=== PATIENT | male | born 1970 | race Caucasian/White ===

== ENCOUNTER → 2017-06-05 | Outpatient (CLI) | payer OTHER ==
[~2017-06-05] MED LIST: ASPIRIN EC81 M1 PO; ASPIRIN81 M2 PO; AUGMENTIN 875875 MG PO; BLOOD PRESSURE MED; EFFIENT10 MG PO; FISH OIL 1,001000 M1 PO; FISH OIL 1,001000 M2 PO; FLEXERIL PO; FOLGARD TABLET1 EAC1 PO; GABAPENTIN 100100 MG PO; HYDROCODON-ACE1 EAC7 PO; HYDROCODONE-AP1 EAC6 PO; IBUPROFEN 800800 M1 PO; IBUPROFEN 800800 MG PO; LEVAQUIN 750 M750 MG PO; LIVALO2 MG PO; METOPROLOL SUCC25 M1 PO; MOBIC7.5 MG PO; NIASPAN 500 MG500 M1 PO; NORCO 5-325 TA1 EACH PO; OMEPRAZOLE20 MG PO; PHENERGAN 25 MG25 MG PO; PROTONIX40 M1 PO; PROTONIX40 M2 PO; TESSALON PERLE100 MG PO; TOPROL XL50 MG PO; VENTOLIN HFA 1818 GM INH; VITAMIN D32000 UNIT PO; ZPAK PO; [UNRECOGNIZED DRUG - OTHER] PO
== END ==
LOC: M.RAD 11:19
DX: R07.81 Pleurodynia (principal)

== ENCOUNTER → 2017-06-14 | Outpatient (CLI) | payer OTHER | LOC: M.ULTRA 06-10 16:26 | DX: N40.0 Benign prostatic hyperplasia without lower urinary tract symptoms (principal); N28.1 Cyst of kidney, acquired; K76.0 Fatty (change of) liver, not elsewhere classified; Z90.49 Acquired absence of other specified parts of digestive tract ==

== ENCOUNTER 2017-07-06 21:23 | Emergency (ER) | payer OTHER ==
[~2017-07-06] VITALS: Ht 185.4 cm; Wt 108.9 kg
[~2017-07-06 21:23] MED LIST changes: -GABAPENTIN 100100 MG PO; -MOBIC7.5 MG PO; -TESSALON PERLE100 MG PO; -[UNRECOGNIZED DRUG - OTHER] PO
[2017-07-06] MEDS ORDERED: GABAPENTIN 100100 MG PO (21:30)
[2017-07-06] MEDS ORDERED: MOBIC7.5 MG PO (21:31)
[2017-07-06 21:56] LABS: URINE BILIRUBIN NEGATIVE (Negative); URINE BLOOD NEGATIVE (Negative); URINE CLARITY CLEAR; URINE COLOR YELLOW; URINE GLUCOSE-RANDOM NEGATIVE (Negative); URINE KETONES NEGATIVE (Negative); URINE LEUKOCYTES-REFLEX NEGATIVE (Negative); URINE NITRITE-REFLEX NEGATIVE (Negative); URINE PROTEIN NEGATIVE (Negative); URINE SPECIFIC GRAVITY 1.015 (1.005-1.030); URINE UROBILINOGEN 0.2 E.U./dl (0.2-1.0)
[2017-07-06 22:18] LABS: INFLUENZA A ANTIGEN None Detected (None Detect)
[2017-07-06] MEDS ORDERED: [UNRECOGNIZED DRUG - OTHER] PO (22:33)
[2017-07-06] MEDS ORDERED: TESSALON PERLE100 MG PO (22:33)
[2017-07-06] MEDS ORDERED: VENTOLIN HFA 1818 GM INH (22:33)
[2017-07-06 22:43] VITALS: BP 146/70
== END 2017-07-06 22:48 | disposition home or self-care (01) ==
LOC: M.ERS 21:23
PROVIDERS: Physician Assistant
DX: J10.1 Influenza due to other identified influenza virus with other respiratory manifestations (principal); J18.1 Lobar pneumonia, unspecified organism; N45.1 Epididymitis; I10 Essential (primary) hypertension; E78.5 Hyperlipidemia, unspecified; F32.9 Major depressive disorder, single episode, unspecified; I48.91 Unspecified atrial fibrillation; Z88.5 Allergy status to narcotic agent

== ENCOUNTER → 2017-08-05 | Outpatient (CLI) | payer OTHER ==
[~2017-08-05] MED LIST changes: +GABAPENTIN 100100 MG PO; +MOBIC7.5 MG PO; +TESSALON PERLE100 MG PO; +[UNRECOGNIZED DRUG - OTHER] PO
== END ==
LOC: M.ULTRA 09:18
DX: I86.1 Scrotal varices (principal); N43.3 Hydrocele, unspecified; N50.812 Left testicular pain

== ENCOUNTER → 2017-08-20 | Outpatient (CLI) | payer OTHER | LOC: M.CT 14:35 | DX: N28.1 Cyst of kidney, acquired (principal); K76.0 Fatty (change of) liver, not elsewhere classified; K57.30 Diverticulosis of large intestine without perforation or abscess without bleeding; I70.0 Atherosclerosis of aorta ==

== ENCOUNTER 2017-08-26 19:30 | Emergency (ER) | payer OTHER ==
[~2017-08-26] VITALS: Ht 185.4 cm; Wt 110.2 kg
[2017-08-26 23:08] VITALS: BP 147/96
== END 2017-08-26 23:10 | disposition home or self-care (01) ==
LOC: M.ERS 19:30
DX: M54.5 Low back pain (principal); M79.604 Pain in right leg; M79.605 Pain in left leg; F32.9 Major depressive disorder, single episode, unspecified; I10 Essential (primary) hypertension; E78.5 Hyperlipidemia, unspecified; Z95.5 Presence of coronary angioplasty implant and graft; Z88.6 Allergy status to analgesic agent

== ENCOUNTER 2018-07-10 20:13 | Emergency (ER) | payer OTHER ==
[~2018-07-10] VITALS: Ht 185.4 cm; Wt 113.4 kg
[2018-07-10 21:03] LABS: ABSOLUTE BASOPHILS 0.1 thou/uL (0.0-0.2); ABSOLUTE EOSINOPHILS 0.2 thou/uL (0.0-0.7); ABSOLUTE LYMPHOCYTES 2.9 thou/uL (0.8-5.3); ABSOLUTE MONOCYTES 0.7 thou/uL (0.0-1.2); ABSOLUTE NEUTROPHILS 4.5 thou/uL (1.6-8.1); EOSINOPHILS 2.8 %; HEMATOCRIT 46.3 % (42.0-52.0); HEMOGLOBIN 15.9 gm/dL (14.0-18.0); MCH 30.3 pg (26.0-34.0); MCHC 34.3 g/dL (28.0-37.0); MCV 88.3 fL (80.0-100.0); MONOCYTES 8.7 %; MPV 8.6 fl. (7.2-11.1); NUCLEATED RBCS 0 /100WBC; PLATELET COUNT* 214 thou/uL (150-400); POLYS 53.5 %; RBC 5.24 mil/uL (4.50-6.00); RDW-CV 13.8 % (10.5-14.5); WBC 8.5 thou/uL (4.0-11.0)
[2018-07-10 21:18] LABS: PROTIME 9.9 Seconds (9.20-11.50)
[2018-07-10 21:27] LABS: ALKALINE PHOSPHATASE 75 U/L (46-116); ANION GAP 7 mmol/L (7-16); BUN 11 mg/dL (7-18); CALCIUM 9.1 mg/dL (8.5-10.1); CHLORIDE 102 mmol/L (98-107); CO2 31 mmol/L (21-32); CREATININE 1.2 mg/dL (0.6-1.3); GLUCOSE 103 mg/dL (70-99); LIPASE 239 U/L (73-393); NT-PRO BRAIN NAT PEPTIDE 16 pg/mL (<300); POTASSIUM 3.9 mmol/L (3.5-5.1); SGOT 29 U/L (15-37); SGPT 66 U/L (30-65); SODIUM 140 mmol/L (136-145); TOTAL BILIRUBIN 0.5 mg/dL (<0.1-1.0); TOTAL PROTEIN 7.4 g/dL (6.4-8.2); TROPONIN-I LEVEL <0.06 ng/mL (<0.06)
[2018-07-10 22:44] VITALS: BP 145/96
--- NOTE | 2018-07-13 14:53 | EKG ---
[place] [address] ELECTROCARDIOGRAM REPORT Name: REFUGIO MARROQUIN Room: [facility]#: [id number] Admission: 07/10/18 Attend Phys: Discharge: 07/10/18 Date of : 68 Report #: [id number] THIS REPORT FOR: //name// [facility] Test Date: 2018-07-10 Test Time: 20:36:28 Pat Name: REFUGIO MARROQUIN Department: Room: Gender: M Regional Cra: : 1970 Requested By: Kacie Tierney Order Number: [id number] MD: Abner Wilson Measurements Intervals [place] Rate: 83 P: 47 [place]: 140 QRS: 43 QRSD: 84 T: 123 QT: 356 QTc: 419 Interpretive Statements Sinus rhythm Nonspecific T abnormalities, lateral leads Compared to ECG 02/17/2017 07:16:35 T-wave abnormality now present Electronically Signed On 07-13-2018 14:52:56 CDT by Abner Wilson [email or web address] <ELECTRONICALLY SIGNED> By: Abner Wilson MD, [facility] 07/13/18 1452 35 35 Abner Wilson MD, FACC /EPI
== END 2018-07-10 22:46 | disposition home or self-care (01) ==
LOC: M.ERS 20:13
PROVIDERS: Personal Emergency Response Attendant
DX: I49.3 Ventricular premature depolarization (principal); I10 Essential (primary) hypertension; E78.5 Hyperlipidemia, unspecified; I48.91 Unspecified atrial fibrillation; F32.9 Major depressive disorder, single episode, unspecified; Z95.5 Presence of coronary angioplasty implant and graft; Z90.49 Acquired absence of other specified parts of digestive tract; Z88.5 Allergy status to narcotic agent

== ENCOUNTER → 2018-12-04 | Outpatient (CLI) | payer OTHER ==
[2018-12-04 10:44] LABS: ABSOLUTE BASOPHILS 0.1 thou/uL (0.0-0.2); ABSOLUTE EOSINOPHILS 0.2 thou/uL (0.0-0.7); ABSOLUTE LYMPHOCYTES 2.1 thou/uL (0.8-5.3); ABSOLUTE MONOCYTES 0.6 thou/uL (0.0-1.2); ABSOLUTE NEUTROPHILS 3.7 thou/uL (1.6-8.1); BASOPHILS 1.1 %; EOSINOPHILS 2.4 %; HEMATOCRIT 45.7 % (42.0-52.0); HEMOGLOBIN 15.4 gm/dL (14.0-18.0); LYMPHOCYTES 31.5 %; MCHC 33.7 g/dL (28.0-37.0); MCV 88.9 fL (80.0-100.0); MPV 8.6 fl. (7.2-11.1); NUCLEATED RBCS 0 /100WBC; PLATELET COUNT* 218 thou/uL (150-400); RBC 5.14 mil/uL (4.50-6.00); RDW-CV 13.5 % (10.5-14.5); WBC 6.6 thou/uL (4.0-11.0)
[2018-12-04 11:07] LABS: ALBUMIN 3.9 g/dL (3.4-5.0); ALKALINE PHOSPHATASE 66 U/L (46-116); ANION GAP 7 mmol/L (7-16); BUN 13 mg/dL (7-18); CALCIUM 8.9 mg/dL (8.5-10.1); CHLORIDE 105 mmol/L (98-107); CHOLESTEROL 209 mg/dL (<200); CO2 30 mmol/L (21-32); CREATININE 1.1 mg/dL (0.6-1.3); GLUCOSE 103 mg/dL (70-99); HDL CHOLESTEROL 40 mg/dL (>40); LDL CHOLESTEROL 146 mg/dL (<100); MAGNESIUM 2.1 mg/dL (1.8-2.4); POTASSIUM 4.2 mmol/L (3.5-5.1); SERUM ASSESSMENT Clear; SGOT 19 U/L (15-37); SGPT 48 U/L (30-65); SODIUM 142 mmol/L (136-145); TC:HDL 5.2 Ratio (Not establshd); TOTAL BILIRUBIN 0.5 mg/dL (<0.1-1.0); TOTAL PROTEIN 7.3 g/dL (6.4-8.2); TRIGLYCERIDE 118 mg/dL (<150); VLDL 24 mg/dL (<40)
== END ==
LOC: M.LAB 10:26
PROVIDERS: Nurse Practitioner
DX: I25.10 Atherosclerotic heart disease of native coronary artery without angina pectoris (principal); E78.2 Mixed hyperlipidemia; R00.2 Palpitations

== ENCOUNTER → 2018-12-09 | Outpatient (CLI) | payer OTHER ==
[~2018-12-09] MED LIST changes: +NORCO 5-325 TA1 EAC1 PO; +REPATHA SU140 MG/1 M SUBQ
--- NOTE | 2018-12-09 13:56 | 2DMMODE ---
[place] [address] 2 D/M-MODE ECHOCARDIOGRAM Name: REFUGIO MARROQUIN Room: [facility]#: [id number] Admission: 12/09/18 Attend Phys: Abner Wilson, Discharge: Date of : 68 Date of Service: 12/09/18 1356 Report #: [id number] THIS REPORT FOR: //name// APPROVED REPORT Study performed: 12/09/2018 11:07:43 EXAM: Comprehensive 2D, Doppler, and color-flow Echocardiogram Patient Location: Out-Patient BSA: 2.37 HR: 74 bpm BP: 121/88 mmHg Other Information Study Quality: Good Indications CAD 2D Dimensions IVSd: 13.83 (7-11mm) LVOT Diam: 20.36 (18-24mm) LVDd: 45.09 mm PWd: 11.27 (7-11mm) Ascending Ao: 28.85 (22-36mm) LVDs: 19.87 (25-40mm) Aortic Root: 27.24 mm Volumes Left Atrial Volume (Systole) LA ESV Index: 16.50 mL/m2 Aortic Valve AoV Peak Tobin.: 0.97 m/s AO Peak Gr.: 3.78 mmHg LVOT Max P.03 mmHg AO Mean Gr.: 2.15 mmHg LVOT Mean P.91 mmHg LVOT Max V: 1.00 m/s AO V2 VTI: 19.44 cm LVOT Mean V: 0.64 m/s GEETA (VTI): 3.48 cm2 LVOT V1 VTI: 20.76 cm Mitral Valve E/A Ratio: 1.17 MV Decel. Time: 153.32 ms MV E Max Tobin.: 0.63 m/s MV PHT: 44.46 ms MVA (PHT): 4.95 cm2 [place] [address] 2 D/M-MODE ECHOCARDIOGRAM Name: REFUGIO MARROQUIN Room: [facility]#: [id number] Admission: 12/09/18 Attend Phys: Abner Wilson, Discharge: Date of : 68 Date of Service: 12/09/18 1356 Report #: [id number] TDI E/Lateral E': 5.25 E/Medial E': 6.30 Medial E' Tobin.: 0.10 m/s Lateral E' Tobin.: 0.12 m/s Pulmonary Valve PV Peak Tobin.: 0.96 m/s PV Peak Gr.: 3.71 mmHg Tricuspid Valve RAP Estimate: 5.00 mmHg TR Peak Gr.: 20.45 mmHg RVSP: 25.45 mmHg PA Pressure: 25.45 mmHg Left Ventricle The left ventricle is normal size. There is normal LV segmental wall motion. There is normal left ventricular wall thickness. Left ventricular systolic function is normal. LVEF is 55-60%. The left ventricular diastolic function is normal. Right Ventricle The right ventricle is normal size. The right ventricular systolic function is normal. Atria The left atrium size is normal. The right atrium size is normal. Aortic Valve The aortic valve is normal in structure. No aortic regurgitation is present. There is no aortic valvular stenosis. Mitral Valve The mitral valve is normal in structure. There is no mitral valve regurgitation noted. No evidence of mitral valve stenosis. Tricuspid Valve The tricuspid valve is normal in structure. Mild tricuspid regurgitation. No pulmonary hypertension. Pulmonic Valve The pulmonary valve is normal in structure. There is no pulmonic valvular regurgitation. Great Vessels The aortic root is normal in size. IVC is [place] [address] 2 D/M-MODE ECHOCARDIOGRAM Name: REFUGIO MARROQUIN Room: [facility]#: [id number] Admission: 12/09/18 Attend Phys: Abner Wilson, Discharge: Date of : 68 Date of Service: 12/09/18 1356 Report #: [id number] collapses >50% with inspiration. Pericardium There is no pericardial effusion. <Conclusion> The left ventricle is normal size. There is normal left ventricular wall thickness. Left ventricular systolic function is normal. LVEF is 55-60%. The left ventricular diastolic function is normal. There is normal LV segmental wall motion. Mild tricuspid regurgitation. No pulmonary hypertension. IVC is normal in size and collapses >50% with inspiration. <ELECTRONICALLY SIGNED> By: Abner Wilson MD, FACC 12/09/18 1356 1356 1356 Abner Wilson MD, FACC /INF
--- NOTE | 2018-12-09 14:20 | CARDNUC ---
[place] [address] CARDIAC NUCLEAR IMAGING REPORT Name: REFUGIO MARROQUIN Room: [facility]#: [id number] Admission: 12/09/18 Attend Phys: Abner Wilson, Discharge: Date of : 68 Date of Service: 12/09/18 1420 Report #: [id number] THIS REPORT FOR: //name// APPROVED REPORT Study performed: 12/09/2018 07:45:00 Indication: Palpitations, Dizziness, Nausea. Patient Location: Out-Patient Stress Tech: Hortencia Gilliam Stress Nurse: Arlyn Alcazar RN Ht: 6 ft 1 in Wt: 250 lbs BSA: 2.37 m2 BMI: 32.97 Medical History Medical History: Angina, Arrhythmia, CAD s/p stent, Fatigue, Former Smoker, HTN, Obesity, Palpitations, Lightheadedness, Dizziness, Nausea. Medications: Metoprolol, ASA 81 Mg, K+, Calcium, Repatha. Allergies: Morphine, Repatha. Cardiac Risk Factors: Age, FHX of CAD, HTN, Past Smoker. Previous Cardiac Procedures: PCI Pretest Chest Pain Characteristics: No chest pain Exercise History: Indeterminate Physical Disabilities: Hip and Back pain Meds Held (24 hrs): Metoprolol Resting Data Rest SPECT myocardial perfusion imaging was performed in supine position 30 minutes following the intravenous injection of 11.2 mCi of Tc-99m Sestamibi. Time of rest injection: 08:05 The images were gated to evaluate regional wall motion and calculate left ventricular ejection fraction. Administration Route: IV Administration Site: Right Hand Pharmacologic Stress Pharmacologic stress test was performed by injecting Regadenoson 0.4 mg IV push over 10-15 seconds immediately followed by the intravenous injection of 34.2 mCi of Tc-99m Sestamibi. Time of stress injection: 10:05 Administration Route: IV Administration Site: [place] [address] CARDIAC NUCLEAR IMAGING REPORT Name: REFUGIO MARROQUIN Room: [facility]#: [id number] Admission: 12/09/18 Attend Phys: Abner Wilson, Discharge: Date of : 68 Date of Service: 12/09/18 1420 Report #: [id number] Heart Rate at time of stress injection: 117 bpm. Gated Stress SPECT was performed 40 minutes after stress injection. The images were gated to evaluate regional wall motion and calculate left ventricular ejection fraction. Prone imaging was performed. Stress Test Details Stress Test: Pharmacologic stress testing performed using 0.4 mg of regadenoson per 5 mL given IV over 10 seconds. Reason for pharmacologic stress test: Hip and back pain.. HR Max Heart Rate (APMHR): 171 bpm Resting HR: 72 bpm Target HR (85% APMHR): 145 bpm Max HR Achieved: 117 bpm % of APMHR: 68 Recovery HR: 94 bpm BP Resting BP: 121/87 mmHg Max BP: 145/105 mmHg Recovery BP: 149/98 mmHg ECG Resting ECG: Sinus Rhythm Stress ECG: Sinus Tachycardia ST Change: None Arrhythmia: None Recovery ECG: Sinus Rhythm Recovery ST Change: None Recovery Arrhythmia: None Clinical Reason for Termination: Completed protocol Stress Symptoms: Flushed/Warmth, Lightheaded, Dizzy. Exercise duration: 00 min 00 sec Exercise capacity: 1.00 METs The patient tolerated Lexiscan infusion without significant cardiac symptoms. Nurse Comments 48 year old male presented with c/o palpitations at rest and exertion associated with lightheadedness/dizziness and Nausea. Patient tolerated sitting Lexiscan with HX of hip and back pain. Recovery unremarkable with PO caffeine, effective. Patient was escorted by staff to Nuclear Medicine for images. Patient was stable with no [place] [address] CARDIAC NUCLEAR IMAGING REPORT Name: MARROQUINREFUGIO CHANG Room: [facility]#: [id number] Admission: 12/09/18 Attend Phys: Abner Wilson, Discharge: Date of : 68 Date of Service: 12/09/18 1420 Report #: [id number] Stress ECG Conclusion The baseline 12-lead EKG shows sinus rhythm without significant ST segment depression. EKGs obtained during and post Lexiscan infusion show sinus rhythm and sinus tachycardia with no significant ST or T wave changes when compared to baseline. Study Quality Study: Good Artifact: No artifact Study Data At rest, the left ventricular ejection fraction was 79%.. Post stress, the left ventricular ejection was 68%.. TID = 1.25. Perfusion Perfusion study showed no significant fixed or reversible defects to suggest infarct or ischemia. Wall Motion Function globally preserved with normal EF. Nuclear Conclusion ECG Findings: negative for ischemia Clinical Findings: negative for ischemia Nuclear Findings: negative for ischemia Exercise Capacity: not assessed Left Ventricular Function: normal Risk Study: low Myocardial perfusion images show no defect to suggest infarct or ischemia. Left ventricular systolic function appears relatively well preserved on gated studies. This is a low risk study. <Conclusion> The baseline 12-lead EKG shows sinus rhythm without significant ST segment depression. EKGs obtained during and post Lexiscan infusion show sinus rhythm and sinus tachycardia with no significant ST or T wave changes when compared to baseline. <ELECTRONICALLY SIGNED> By: Abner Wilson MD, FACC 12/09/18 1420 1420 1420 Abner Wilson MD, FACC /INF
== END ==
LOC: M.NUC 07:49
DX: I36.1 Nonrheumatic tricuspid (valve) insufficiency (principal); I25.10 Atherosclerotic heart disease of native coronary artery without angina pectoris; I10 Essential (primary) hypertension; E78.2 Mixed hyperlipidemia; Z95.5 Presence of coronary angioplasty implant and graft; Z79.899 Other long term (current) drug therapy; Z88.8 Allergy status to other drugs, medicaments and biological substances; Z87.891 Personal history of nicotine dependence

== ENCOUNTER 2018-12-14 16:35 | Emergency (ER) | payer OTHER ==
[~2018-12-14] VITALS: Ht 185.4 cm; Wt 112.5 kg
[~2018-12-14 16:35] MED LIST changes: -NORCO 5-325 TA1 EAC1 PO; -REPATHA SU140 MG/1 M SUBQ
[2018-12-14] MEDS ORDERED: REPATHA SU140 MG/1 M SUBQ (16:46)
[2018-12-14] MEDS ORDERED: NORCO 5-325 TA1 EAC1 PO (16:50)
[2018-12-14 17:02] VITALS: BP 139/78
== END 2018-12-14 17:03 | disposition home or self-care (01) ==
LOC: M.ERS 16:35
DX: S50.12XA Contusion of left forearm, initial encounter (principal); F32.9 Major depressive disorder, single episode, unspecified; I48.91 Unspecified atrial fibrillation; I10 Essential (primary) hypertension; E78.5 Hyperlipidemia, unspecified; Z90.89 Acquired absence of other organs; Z98.890 Other specified postprocedural states; Z95.2 Presence of prosthetic heart valve; Z88.5 Allergy status to narcotic agent; W01.198A Fall on same level from slipping, tripping and stumbling with subsequent striking against other object, initial encounter; Y92.89 Other specified places as the place of occurrence of the external cause; Y93.89 Activity, other specified; Y99.8 Other external cause status

== ENCOUNTER → 2019-01-20 | Outpatient (CLI) | payer OTHER ==
[~2019-01-20] MED LIST changes: +NORCO 5-325 TA1 EAC1 PO; +REPATHA SU140 MG/1 M SUBQ
[2019-01-20 17:48] LABS: ABSOLUTE BASOPHILS 0.1 thou/uL (0.0-0.2); ABSOLUTE EOSINOPHILS 0.2 thou/uL (0.0-0.7); ABSOLUTE MONOCYTES 0.7 thou/uL (0.0-1.2); ABSOLUTE NEUTROPHILS 5.8 thou/uL (1.6-8.1); BASOPHILS 0.7 %; EOSINOPHILS 1.7 %; HEMATOCRIT 47.1 % (42.0-52.0); HEMOGLOBIN 16.2 gm/dL (14.0-18.0); LYMPHOCYTES 30.9 %; MCH 30.8 pg (26.0-34.0); MCHC 34.5 g/dL (28.0-37.0); MCV 89.3 fL (80.0-100.0); MONOCYTES 7.1 %; MPV 8.4 fl. (7.2-11.1); NUCLEATED RBCS 0 /100WBC; PLATELET COUNT* 249 thou/uL (150-400); POLYS 59.6 %; RBC 5.27 mil/uL (4.50-6.00); RDW-CV 13.1 % (10.5-14.5); WBC 9.7 thou/uL (4.0-11.0)
[2019-01-20 17:57] LABS: ALBUMIN 4.2 g/dL (3.4-5.0); CALCIUM 9.1 mg/dL (8.5-10.1); CREATININE 1.1 mg/dL (0.6-1.3); DIRECT BILIRUBIN 0.2 mg/dL (<0.1-0.3); POTASSIUM 4.1 mmol/L (3.5-5.1); TOTAL BILIRUBIN 0.7 mg/dL (<0.1-1.0); TOTAL PROTEIN 7.6 g/dL (6.4-8.2)
== END ==
LOC: M.CT 17:28
PROVIDERS: Registered Nurse Diabetes Educator
DX: N28.1 Cyst of kidney, acquired (principal); K76.0 Fatty (change of) liver, not elsewhere classified; Z90.49 Acquired absence of other specified parts of digestive tract; Z68.35 Body mass index [BMI] 35.0-35.9, adult

== ENCOUNTER → 2020-02-17 | Outpatient (CLI) | payer OTHER | LOC: M.ULTRA 01-29 16:10 | PROVIDERS: ATTEND Registered Nurse Diabetes Educator | DX: I65.23 Occlusion and stenosis of bilateral carotid arteries (principal); G98.8 Other disorders of nervous system; R41.3 Other amnesia; R42 Dizziness and giddiness; Z88.8 Allergy status to other drugs, medicaments and biological substances; Z87.828 Personal history of other (healed) physical injury and trauma ==

== ENCOUNTER → 2020-06-01 | Outpatient (CLI) | payer OTHER ==
[2020-06-01 11:55] LABS: ALBUMIN 4.2 g/dL (3.4-5.0); CALCIUM 9.3 mg/dL (8.5-10.1); POTASSIUM 4.3 mmol/L (3.5-5.1); TOTAL BILIRUBIN 0.8 mg/dL (<0.1-1.0); TOTAL PROTEIN 7.3 g/dL (6.4-8.2)
== END ==
LOC: M.LAB 11:16
PROVIDERS: ATTEND Registered Nurse
DX: R00.2 Palpitations (principal)

== ENCOUNTER 2020-09-16 14:13 | Inpatient (IN) | payer OTHER ==
[~2020-09-16] VITALS: Ht 185.4 cm; Wt 115.7 kg
[~2020-09-16 14:13] MED LIST changes: +OMEPRAZOLE 20 M20 M1 PO; -OMEPRAZOLE20 MG PO
[2020-09-16] MEDS ORDERED: CYMBALTA30 MG PO (14:23)
[2020-09-16 14:24] VITALS: BP 150/105
[2020-09-16] MEDS ORDERED: VIAGRA25 MG PO (14:28)
[2020-09-16 14:49] LABS: ABSOLUTE BASOPHILS 0.1 thou/uL (0.0-0.2); ABSOLUTE EOSINOPHILS 0.1 thou/uL (0.0-0.7); ABSOLUTE MONOCYTES 0.7 thou/uL (0.0-1.2); ABSOLUTE NEUTROPHILS 6.5 thou/uL (1.6-8.1); EOSINOPHILS 0.8 %; HEMOGLOBIN 15.6 gm/dL (14.0-18.0); LYMPHOCYTES 21.4 %; MCHC 34.7 g/dL (28.0-37.0); MCV 89.3 fL (80.0-100.0); MPV 8.1 fl. (7.2-11.1); NUCLEATED RBCS 0 /100WBC; PLATELET COUNT* 220 thou/uL (150-400); POLYS 69.8 %; RBC 5.04 mil/uL (4.50-6.00); RDW-CV 13.5 % (10.5-14.5); WBC 9.4 thou/uL (4.0-11.0)
[2020-09-16 14:56] LABS: CALCIUM 8.8 mg/dL (8.5-10.1); POTASSIUM 3.9 mmol/L (3.5-5.1)
[2020-09-16 15:00] LABS: ALBUMIN 3.8 g/dL (3.4-5.0); TOTAL BILIRUBIN 0.8 mg/dL (<0.1-1.0); TOTAL PROTEIN 7.4 g/dL (6.4-8.2)
--- NOTE | 2020-09-16 16:57 | EKG ---
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 09/16/20 1657 1420 1420 Bobby Rutherford MD, [facility] /EPI
[2020-09-16 19:22] VITALS: BP 159/97
[2020-09-16 20:49] VITALS: BP 155/100
[2020-09-16 23:55] VITALS: BP 177/96
[2020-09-17 04:05] VITALS: BP 161/87
[2020-09-17 06:49] LABS: CHOLESTEROL 238 mg/dL (<200); HDL CHOLESTEROL 46 mg/dL (>40); LDL CHOLESTEROL 163 mg/dL (<100); TC:HDL 5.2 Ratio (Not establshd); TRIGLYCERIDE 145 mg/dL (<150); VLDL 29 mg/dL (<40)
[2020-09-17 06:54] LABS: SERUM ASSESSMENT CLEAR
[2020-09-17 08:24] VITALS: BP 143/94
[2020-09-17 12:00] VITALS: BP 140/82
--- NOTE | 2020-09-17 12:59 | EKG ---
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 : 1970 Requested By: Vivian Rawls Order Number: [id number] Reading MD: Ko Jacques Measurements Intervals [place] Rate: 92 P: 50 [place]: 139 QRS: 53 QRSD: 80 T: 105 QT: 351 QTc: 435 Interpretive Statements Sinus rhythm Nonspecific T abnormalities, lateral leads Baseline wander in lead(s) V1 Compared to ECG 09/16/2020 14:20:41 T-wave abnormality now present Sinus tachycardia no longer present Electronically Signed On 09-17-2020 12:59:08 CDT by Ko Jacques [email or web address] <ELECTRONICALLY SIGNED> By: Ko Jacques MD, [facility] 09/17/20 1259 1154 1154 Ko Jacques MD, FAC /EPI
[2020-09-17 16:00] VITALS: BP 129/84
[2020-09-17 20:00] VITALS: BP 158/98
[2020-09-18] VITALS (16 sets, daily range): BP systolic 124–167; BP diastolic 68–101
[2020-09-18 05:26] LABS: HEMATOCRIT 46.2 % (42.0-52.0); HEMOGLOBIN 15.7 gm/dL (14.0-18.0); MCH 30.6 pg (26.0-34.0); MPV 8.5 fl. (7.2-11.1); RBC 5.13 mil/uL (4.50-6.00); RDW-CV 13.6 % (10.5-14.5); WBC 8.6 thou/uL (4.0-11.0)
[2020-09-18 05:39] LABS: CALCIUM 8.8 mg/dL (8.5-10.1); CREATININE 0.9 mg/dL (0.6-1.3); POTASSIUM 3.6 mmol/L (3.5-5.1)
--- NOTE | 2020-09-18 13:12 | CON ---
[facility] [address] [place] [address] CONSULTATION Name: REFUGIO MARROQUIN Room: [address] Sandip Bruno#: [id number] Admission: 09/16/20 Attend Phys: Myrna Crouch Discharge: Date of : 68 Report #: [id number] THIS REPORT FOR: cc: Chastity Ahn Tammy RNP Blick, David R. MD [facility] ~ DOC #: [id number] cc: JOAQUIM Solorio MD [facility] DATE OF CONSULTATION: 09/17/2020 HISTORY OF PRESENT ILLNESS: The patient is a 50-year-old white male who I was asked to see in the hospital today after complaining of chest pain. The patient notes he presented in 2011 with shortness of breath. He was seen by Dr. Wilson, had an abnormal stress test. He underwent a cardiac catheterization from the right radial artery by Dr. Alcantar. He apparently had a coronary stent placed at that time. He has done well since that time. His last stress test apparently was 2 years ago. He stays fairly active and yesterday was mowing yards. He mowed three separate yards including one at [place], [place]. When he would mow the yard, he felt a discomfort in his chest, went into his jaw. This would last for up to an hour. It resolved when he quit mowing. After the third episode, he finally drove himself to [place] and admitted for further evaluation and treatment. He denied associated nausea, increased shortness of breath, diaphoresis. He has noted episodes of his heart rate increase but he has had no syncope. He has had no edema. PAST MEDICAL HISTORY: Significant for tonsillectomy, cholecystectomy, hypertension, hyperlipidemia. No diabetes. MEDICATIONS: Metoprolol, Cymbalta, aspirin, Prozac, Viagra as needed. ALLERGIES: HE PREVIOUSLY COULD NOT TOLERATE VASCEPA, REPATHA INJECTIONS, STATIN DRUGS. He has no other drug allergies. FAMILY HISTORY: His father had bypass surgery. SOCIAL HISTORY: He is . 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 No smoking, alcohol abuse. REVIEW OF SYSTEMS: He has sleep apnea, uses CPAP. No stroke. No liver problems. No asthma. No kidney problems. No cancer. He has PTSD and sees a psychiatrist. No cancer. No chronic skin condition. PHYSICAL EXAMINATION: [place] [address] CONSULTATION Name: REFUGIO MARROQUIN Room: [address] Sandip Bruno#: [id number] Admission: 09/16/20 Attend Phys: Myrna Crouch Discharge: Date of : 68 Report #: [id number] GENERAL: Reveals a middle-aged male who appears in no distress. VITAL SIGNS: He had a blood pressure of 160/90, pulse is 90. He is afebrile. HEENT: He was anicteric. Conjunctivae pink. Mucous membranes are moist. NECK: Veins not appear distended. No carotid bruits. Neck is supple. CHEST: Clear to auscultation. CARDIOVASCULAR: Regular rate and rhythm. No murmur or rub. ABDOMEN: Soft. EXTREMITIES: No edema. Posterior tibial pulse 2+ bilaterally. SKIN: Cool and dry. NEUROLOGIC: Nonfocal. PSYCHIATRIC: Mood is appropriate. SKIN: Warm and dry. LABORATORY DATA: ECG on admission yesterday showed a sinus rhythm. There was nonspecific T-wave changes noted. His workup in the emergency room yesterday, sodium 140, creatinine 1.0. His troponins were all less than 0.06. In 2014, his cholesterol was 238, triglycerides 145, HDL 46, LDL 163. His white blood cell count 9.4, hemoglobin 15.6. The patient had a portable chest x-ray in the emergency room yesterday that showed no acute abnormality. Carotid Doppler study last February showed minimal plaque, but no significant stenosis. IMPRESSION AND RECOMMENDATIONS: 1. Unstable angina. Previous stent in the ramus intermedius artery. Recommend cardiac catheterization. 2. Hypertension. The patient is on a beta lina. 3. Hyperlipidemia. THE PATIENT IS UNABLE TO TOLERATE VASCEPA, REPATHA AND STATIN DRUGS. 4. History of PTSD. The patient is followed by Psychiatry. 5. Sleep apnea. The patient uses a CPAP. Ko Jacques MD [facility] [email or web address]/OMER <ELECTRONICALLY SIGNED> By: Ko Jacques MD, [facility] 09/18/20 1312 0805 0822Ko Jacques MD, [facility] /nt
[2020-09-19 04:34] LABS: HEMATOCRIT 44.7 % (42.0-52.0); HEMOGLOBIN 15.5 gm/dL (14.0-18.0); MCH 30.8 pg (26.0-34.0); MCHC 34.6 g/dL (28.0-37.0); MPV 8.5 fl. (7.2-11.1); RBC 5.03 mil/uL (4.50-6.00); RDW-CV 13.5 % (10.5-14.5); WBC 10.1 thou/uL (4.0-11.0)
[2020-09-19 04:56] VITALS: BP 125/87
[2020-09-19 04:58] LABS: CALCIUM 8.5 mg/dL (8.5-10.1); CREATININE 0.8 mg/dL (0.6-1.3); POTASSIUM 3.7 mmol/L (3.5-5.1); TROPONIN-I LEVEL 0.59 ng/mL (<0.06)
[2020-09-19 08:35] VITALS: BP 130/92
--- NOTE | 2020-09-19 10:30 | EKG ---
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: JOSE FRANCISCO : 1970 Requested By: Ko Jacques Order Number: [id number] Naun MD: Ko Jacques Measurements Intervals [place] Rate: 77 P: 58 [place]: 132 QRS: 44 QRSD: 81 T: 102 QT: 379 QTc: 429 Interpretive Statements Sinus rhythm Nonspecific T abnormalities, lateral leads Compared to ECG 09/17/2020 11:54:37 No significant changes Electronically Signed On 09-19-2020 10:30:43 CDT by Ko Jacques [email or web address] <ELECTRONICALLY SIGNED> By: Ko Jacques MD, [facility] 09/19/20 1030 1409 1409 Ko Jacques MD, [facility] /EPI
--- NOTE | 2020-09-19 10:34 | EKG ---
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1970 Requested By: Ko Jacques Order Number: [id number] Reading MD: Ko Jacques Measurements Intervals [place] Rate: 71 P: 70 [place]: 144 QRS: 62 QRSD: 79 T: 117 QT: 396 QTc: 431 Interpretive Statements Sinus rhythm Abnormal R-wave progression, early transition Abnormal T, consider ischemia, lateral leads Compared to ECG 09/18/2020 14:09:30 T-wave abnormality still present Electronically Signed On 09-19-2020 10:34:38 CDT by Ko Jacques [email or web address] <ELECTRONICALLY SIGNED> By: Ko Jacques MD, [facility] 09/19/20 1034 0544 0544 Ko Jacques MD, [facility] /EPI
[2020-09-19] MEDS ORDERED: ZETIA10 MG PO (10:51)
[2020-09-19] MEDS ORDERED: METOPROLOL SUCC25 M1 PO (10:51)
[2020-09-19] MEDS ORDERED: EFFIENT10 MG PO (10:51)
[2020-09-19 11:40] VITALS: BP 143/96
[2020-09-19 12:09] VITALS: BP 143/96
[2020-09-19 13:28] VITALS: BP 143/96
--- NOTE | 2020-09-19 15:00 | CARD ---
[facility] [address] [place] [address] CARDIAC CATH REPORT Name: REFUGIO MARROQUIN Room: [address] [place] .R.#: [id number] Admission: 09/16/20 Attend Phys: Myrna Crouch Discharge: 09/19/20 Date of : 68 Report #: [id number] THIS REPORT FOR: cc: Chastity Ahn Tammy RNP Blick, David R. MD [facility] ~ ADDENDUM APPROVED REPORT Study performed: 09/18/2020 08:42:52 Patient Details Patient Status: In-Patient Room #: 228 The patient is a 50 year-old male Event Personnel Ko Jacques Slumber Room Attendant, Maryjo Barnett RN No Experience, Ai Paula RN Monitor, Marguerite Camp RTR Scrub Procedures Performed Art Access - R radial artery Left Heart Cath w/or w/o Coronaries; HANH Place w/wo Plasty Single DIAG; HANH Place w/wo Plasty Single RCA ;Hemostasis with Hemoband Indication Unstable angina , Chest pain Risk Factors Hypercholesterolemia, Hypertension Previous Procedures/Diagnoses Previous PCI Admission/Lab Medications/Medications given during procedure Aspirin, Glycoprotein IllbIlla Inhibitors, Platelet Aff. Inhib., Heparin Unfract. Procedure Narrative The patient was brought electively to the Cardiac Catheterization Laboratory and was prepped and draped in a sterile manner. The right wrist was infiltrated with 2% Lidocaine subcutaneous anesthesia. A Slender Glidesheath sheath was inserted into the right radial artery. Coronary angiography was performed using coronary diagnostic catheters. The right coronary system [place] [id number] CARDIAC CATH REPORT Name: REFUGIO MARROQUIN Room: [address]#: [id number] Admission: 09/16/20 Attend Phys: Myrna Crouch Discharge: 09/19/20 Date of : 68 Report #: [id number] a Diagnostic JR4 catheter. The left coronary system was accessed and visualized with a Diagnostic JL4 catheter. The left ventricle was accessed and visualized with a Diagnostic PIGTAIL catheter. Left ventricular/Aortic Valve gradient assessed via catheter pullback. Left ventriculogram was performed in [place] projection. Closure device was deployed with a 6 Fr vascband. The patient tolerated the procedure well and there were no complications associated with the procedure. There was no hematoma. Intraoperative Conscious Sedation Sedation start time: 09:17 Case end Time: 10:39 Fentanyl 25 mcg Versed 2 mg Fluoro Time: 14.0 minutes Dose: DAP 405559 cGycm2 2720 mGy Contrast Type and Amount: Omnipaque 280 ml Coronary Angiography The patient's coronary anatomy is co- dominant. Diagnostic Cath Left Main 0% stenosis LAD 50% proximal and 50% mid stenosis Diagonal 1 large vessel with 80% ostial stenosis Circumflex 0% stenosis OM2 small vessel with 90% mid stenosis Right Coronary 40% proximal, 80% mid, and 50% distal stenoses Ramus large vessel with 40% proximal and a mid stent with 0% stenosis Left Ventriculography The left ventricular ejection fraction is estimated to be 60-65%. Left ventricular wall motion abnormalities are not present. There is no mitral insufficiency. Hemodynamics The aortic pressure is 118/80 mmHg with a mean of 58 mmHg. The left ventricular pressure is 124/10 mmHg with a mean of mmHg. The left ventricular end diastolic pressure is 12 mmHg. There was no gradient across the aortic valve upon pullback. Pullback from the left ventricle to the aorta revealed no gradient across [place] [id number] CARDIAC CATH REPORT Name: REFUGIO MARROQUIN Room: [address]#: [id number] Admission: 09/16/20 Attend Phys: Myrna Crouch Discharge: 09/19/20 Date of : 68 Report #: [id number] PCI Technique Lesion Anticoagulation was achieved with Heparin. bolus of iv aggrastat given Percutaneous coronary intervention was performed on the proximal right coronary artery. The lesion stenosis prior to intervention was 80% with CATIA 3 flow. A 6FR JCR 4 100CM Guide Catheter was used to engage the right ostium. A IG: BMW 190cm Interventional Guidewire was used to cross the lesion. BALLOON DILATION A Balloon catheter Euphora SC 2.5x10 was inserted and inflated up to 20.00atm for 16seconds. Repeat angiography revealed the following post-dilatation results: 40% stenosis. STENT DEPLOYMENT A drug-eluting stent Sukumar RX Stent 3.5X38mm was inserted and inflated up to 15.00atm for 20seconds. Repeat angiography revealed the following post-stent deployment results: 0% stenosis. Additional Inflation: 15.00atm for 15seconds. Additional Inflation: 18.00atm for 21seconds. Advancement of the long drug eluting stent required a second BMW wire inserted into the distal RCA to act as a rafael wire. Final angiography reveals 0 % stenosis with CATIA 3 flow. PCI Technique Lesion 2 Percutaneous Coronary Intervention was performed on the first diagnonal branch segment. Percutaneous coronary intervention was performed on the first diagonal branch segment. The lesion stenosis prior to intervention was 80% with CATIA 3 flow. A 6FR XB LAD 3.0 100CM Guide Catheter was used to engage the lm ostium. A IG: BMW 190cm Interventional Guidewire was used to cross the lesion. Balloon Dilation A Balloon catheter Euphora SC 2.5x10 was inserted and inflated up to 8.00atm for 8seconds. Repeat angiography revealed the following post-dilatation results: 50% stenosis. A second BMW wire was inserted into the distal LAD to protect the LAD during stenting of the diagonal ostium Stent Deployment A drug-eluting stent [place] RX Stent 3.0X12mm was inserted and inflated up to 10.00atm for 14seconds. Repeat angiography revealed the following post-stent deployment results: 0% stenosis. Additional Inflation: 11.00atm for 12seconds. Additional Inflation: 13.00atm for 15seconds. [address] [id number] CARDIAC CATH REPORT Name: REFUGIO MARROQUIN Room: [address] [place]#: [id number] Admission: 09/16/20 Attend Phys: Myrna Crouch Discharge: 09/19/20 Date of : 68 Report #: [id number] Final angiography reveals 0 % stenosis with CATIA 3 flow. Conclusion 1. 80% stenosis of the ostium of a large first diagonal branch of the LAD 2. 90% stenosis of a small second marginal branch of the circumflex artery. 3. No restenosis noted of a stent in the ramus branch of the left coronary artery. 4. 80% long stenosis noted of the proximal and mid RCA. 5. LVEF 60-65% 6. successful placement of a long drug eluting stent in the RCA 7. successful placement of a drug eluting stent in the ostium of the first diagonal branch of the LAD Recommendations Cardiac Rehabilitation Referral Aggressive Medical Therapy Medications Administered Prasugrel <ELECTRONICALLY SIGNED> By: Ko Jacques MD, FACC 09/19/20 1459 1459 [id number] Jacques MD, FAC /INF
== END 2020-09-19 13:40 | disposition home or self-care (01) | DRG 247 ==
LOC: M.ERS 14:13 → M.2W 15:52 → M.TBA-ER 15:52 → M.2W 19:46
PROVIDERS: Emergency Medicine; Internal Medicine Cardiovascular Disease; ADMIT Internal Medicine; ATTEND Internal Medicine
PROC: B2111ZZ Fluoroscopy of Multiple Coronary Arteries using Low Osmolar Contrast (ICD-10-PCS; principal; 2020-09-18)
PROC: 027135Z Dilation of Coronary Artery, Two Arteries with Two Drug-eluting Intraluminal Devices, Percutaneous Approach (ICD-10-PCS; principal; 2020-09-18)
PROC: 4A023N7 Measurement of Cardiac Sampling and Pressure, Left Heart, Percutaneous Approach (ICD-10-PCS; principal; 2020-09-18)
PROC: 3E033PZ Introduction of Platelet Inhibitor into Peripheral Vein, Percutaneous Approach (ICD-10-PCS; principal; 2020-09-18)
PROC: B2151ZZ Fluoroscopy of Left Heart using Low Osmolar Contrast (ICD-10-PCS; principal; 2020-09-18)
DX: I25.110 Atherosclerotic heart disease of native coronary artery with unstable angina pectoris (principal); I10 Essential (primary) hypertension; E78.5 Hyperlipidemia, unspecified; I48.91 Unspecified atrial fibrillation; F32.9 Major depressive disorder, single episode, unspecified; F43.10 Post-traumatic stress disorder, unspecified; K21.9 Gastro-esophageal reflux disease without esophagitis; G47.33 Obstructive sleep apnea (adult) (pediatric); Z20.822 Contact with and (suspected) exposure to COVID-19; Z95.5 Presence of coronary angioplasty implant and graft; Z90.49 Acquired absence of other specified parts of digestive tract; Z88.5 Allergy status to narcotic agent; Z79.82 Long term (current) use of aspirin; Z79.899 Other long term (current) drug therapy